=== PATIENT | female | born 1975 | race Two or more races ===

== ENCOUNTER 2023-06-19 10:10 | Emergency (ER) | payer MEDICAID ==
[~2023-06-19] VITALS: Ht 162.6 cm; Wt 95.3 kg
[2023-06-19] MEDS ORDERED: CEPH500C2 PO (11:34)
[2023-06-19] MEDS ORDERED: SULF1TAB48 PO (11:34)
[2023-06-19 11:49] VITALS: BP 141/81; TEMP 98.6; O2SAT 100
== END 2023-06-19 11:45 | disposition home or self-care (01) ==
LOC: ER 10:23
DX: L03.311 Cellulitis of abdominal wall (principal)